=== PATIENT | female | born 1970 | race Caucasian/White ===

== ENCOUNTER 2021-05-27 01:56 | Day surgery (SDC) | payer OTHER, MEDICARE, SELFPAY ==
[2021-05-15 13:44] VITALS: BMI 21.3
--- NOTE | 2021-05-25 12:36 | WPDANESEPPF ---
Anes - Initial Pre Proc Eval Procedure: Operation Date: 05/27/21 09:00 Proposed Procedures p Screening Colonoscopy - Ubaldo Haynes MD Date/Time: 05/25/21 12:36 Surgeon: Ubaldo Haynes MD Pre Op Diagnosis: neoplasm screening Patient Data Age: 50 Gender: F Height: 1.57 m Weight: 53 kg Allergies Allergy/AdvReac Type Severity Reaction Status Date / Time No Known Allergies Allergy Verified 05/27/21 08:10 Home Medications Medication Instructions Recorded Confirmed Type erythromycin with ethanol 1 applic TOPICAL DAILY 05/15/21 05/15/21 History sertraline 50 mg PO DAILY 05/15/21 05/15/21 History Patient hx anesthesia problems: none Family hx anesthesia problems: none Results Review: All pre-operative results and documents have been reviewed as part of the pre-operative evaluation. [facility] Past Medical History Medical History (Updated 05/27/21 @ 08:20 by Ubaldo Haynes MD) Anxiety History of opioid abuse Osteoarthritis Surgical History Surgical History (Updated 05/25/21 @ 12:37 by Hugo Walsh DO) Hx of fusion of cervical spine Social History Social History Smoking status: Never smoker Alcohol intake: never Substance use: current Substance use type: marijuana Other substance usage details: Daily edibles Living arrangements: with family Spiritual care concerns: No Anes - Eval Final PreProcedure Day of Procedure 05/25/21 12:36 Patient weight: normal Heart: regular rate and rhythm Lungs: clear to auscultation and normal air movement Airway: Mallampati scale class II Neurological: alert and oriented Last oral intake: >/= 8 hours ASA classification: III Emergent: no Anesthetic plan: proceed Anesthesia type and monitoring: general GIVS and standard monitoring Results Review: All pre-operative results and documents have been reviewed as part of the pre-operative evaluation. Informed Consent: The patient's anesthetic plan and its attendant risks and benefits were discussed with the patient/family/POA. Questions were solicited and answers provided to the satisfaction of the patient/family/POA.
[2021-05-27 08:11] VITALS: BP 110/78; PULSE 88; RESP 16; TEMP 36.5; O2SAT 99
--- NOTE | 2021-05-27 08:19 | WPDGICN ---
Assessment and Plan Assessment and plan (1) Encounter for screening colonoscopy: Code(s): Z12.11 - Encounter for screening for malignant neoplasm of colon Status: Acute Assessment and Plan: Patient presents today for screening colonoscopy. She appears to be at average risk for colon polyp. Further recommendations may be given after endoscopy. GI Consult Note Consult date/time: 05/27/21 08:19 HPI: Carol Ann Garrison is a 50 year old female Presents for neoplasia screening. Patient's current weight appetite and bowel movements are normal. She denies abdominal pain. She has had no bleeding. Family history is noncontributory. Patient reports she was told she had hemorrhoids many years ago. She denies any obvious blood in her stools. She presents today for colonoscopy. Review of Systems Review of Systems: All systems reviewed & are unremarkable except as noted in HPI and below PMFSH Past Medical History Medical History (Updated 05/27/21 @ 08:20 by Ubaldo Haynes MD) Anxiety History of opioid abuse Osteoarthritis Surgical History Surgical History (Updated 05/25/21 @ 12:37 by Hugo Walsh DO) Hx of fusion of cervical spine Social History Social History Smoking status: Never smoker Alcohol intake: never Substance use: current Substance use type: marijuana Other substance usage details: Daily edibles Living arrangements: with family Spiritual care concerns: No Meds Home Medications and Allergies Home Medications Medication Instructions Recorded Confirmed Type erythromycin with ethanol 1 applic TOPICAL DAILY 05/15/21 05/15/21 History sertraline 50 mg PO DAILY 05/15/21 05/15/21 History Allergies Allergy/AdvReac Type Severity Reaction Status Date / Time No Known Allergies Allergy Verified 05/27/21 08:10 Vital Signs Vital Signs - 24 hr 05/27/21 08:11 Temperature 97.7 F Pulse Rate 88 Respiratory Rate 16 Blood Pressure 110/78 Pulse Oximetry 99 Exam Narrative: Physical exam reveals patient to be alert. Vital signs stable. HEENT exam is unremarkable. Patient is anicteric. Lungs are clear to auscultation and percussion. Heart is without murmur or extra sounds. Abdominal exam bowel sounds are present soft nontender with no hepatosplenomegaly. Digital external rectal exam is normal.
[2021-05-27] MEDS: LACTATED RINGERS 1,000 ML 150 ML IV CONT (08:25)
[2021-05-27 09:05] VITALS: BP 90/57; PULSE 75; O2SAT 100
[2021-05-27 09:12] VITALS: BP 92/56; PULSE 79; RESP 198; O2SAT 100
[2021-05-27 09:25] VITALS: BP 125/84; PULSE 81; RESP 20; O2SAT 99
== END 2021-05-27 09:34 | disposition home or self-care (01) ==
PROVIDERS: PCP Internal Medicine; Visit Provider Internal Medicine Gastroenterology
PROC: 0DJD8ZZ Inspection of Lower Intestinal Tract, Via Natural or Artificial Opening Endoscopic (ICD-10-PCS; CPT 45378; principal; 2021-05-27 09:00)
DX: Z12.11 Encounter for screening for malignant neoplasm of colon (principal); K64.8 Other hemorrhoids; K57.30 Diverticulosis of large intestine without perforation or abscess without bleeding; F41.9 Anxiety disorder, unspecified; F12.90 Cannabis use, unspecified, uncomplicated
CPT/HCPCS: 45378; J2704; J7120

== ENCOUNTER 2022-10-31 13:57 | Outpatient (CLI) | payer OTHER, MEDICARE, SELFPAY ==
--- NOTE | ~2022-10-31 | CT_ITS ---
EXAMINATION: CT abdomen pelvis w con DATE: 10/31/2022 14:55 INDICATION: Abdominal cramping TECHNIQUE: Computed tomography (CT) of the abdomen and pelvis was performed with 100 CC Omnipaque 350 intravenous contrast. Automated exposure control and iterative reconstruction technique were employe d. Exam dose: 236.87 mGy-cm total exam DLP. COMPARISON: None. FINDINGS: There is minimal bilateral dependent lower lobe atelectasis. The lung bases are clear of in filtrate or consolidation. Normal heart size. No pericardial or pleural effusion. Gallbladder, bile ducts and pancreatic duct are unremarkable. Diffuse hepatic steatosis. No hepatic, splenic, pancreatic, and adrenal or renal space-occupying mass lesion is detected. Normal caliber of the abdominal aorta. No intraperitoneal or retroperitoneal or pelvic mass lesion or adenopathy or ascites. Up to approximately 1.6 cm right ovarian or adnexal right ovarian or adnexal cysts are suggested. The uterus and adnexal areas are otherwise unremarkable. Normal appendix. Diverticulosis of the colon; no CT evidence of diverticulitis. No bowel obstruction, bowel wall thick ening, pneumatosis or intraperitoneal free air. Very small fat-containing umbilical hernia. No suspicious osteolytic or osteoblastic lesions. IMPRESSION: Normal appendix Diverticulosis of the colon; no CT evidence of diverticulitis No bowel obstruction or free air Hepatic steatosis Right adnexal or ovarian probable cysts Reviewed, dictated and finalized at [facility]. Reviewed, dictated and finalized at [facility].
== END 2022-10-31 13:58 | disposition home or self-care (01) ==
LOC: ANHIMG 14:02
PROVIDERS: PCP Internal Medicine; Visit Provider Internal Medicine
DX: R10.9 Unspecified abdominal pain (principal); K57.30 Diverticulosis of large intestine without perforation or abscess without bleeding; K76.0 Fatty (change of) liver, not elsewhere classified
CPT/HCPCS: 74177; Q9967

== ENCOUNTER 2023-09-28 14:54 | Outpatient (CLI) | payer OTHER, MEDICARE, SELFPAY ==
--- NOTE | ~2023-09-28 | XR_ITS ---
XR clavicle BI Ordering provider: Esther Meehan MD History: . Clavicle enlargement . Comparison: None. FINDINGS: BONES: No acute fracture or dislocation. JOINT SPACES: Normal. No acromioclavicular separation. SOFT TISSUES: Normal. IMPRESSION: No acute osseous abnormality of the right and left clavicle. Reviewed, dictated and finalized at [facility].
== END 2023-09-28 14:55 ==
PROVIDERS: PCP Internal Medicine; Visit Provider Internal Medicine
DX: M89.319 Hypertrophy of bone, unspecified shoulder (principal)
CPT/HCPCS: 73000

== ENCOUNTER 2023-12-21 12:55 | Outpatient (CLI) | payer OTHER, MEDICARE, SELFPAY ==
--- NOTE | ~2023-12-21 | MR_ITS ---
EXAMINATION: MR clavicle RT wo/w con DATE: 12/21/2023 13:56 INDICATION: Right clavicle enlargement. Right shoulder pain. TECHNIQUE: Magnetic resonance imaging (MRI) of the right clavicle was performed without and with 9 mL MultiHance intravenous contrast. COMPARISON: Right clavicle radiographs 09/28/2023, chest CT 02/22/2018 FINDINGS: There is a skin marker overlying the right sternoclavicular joint. Alignment is normal. No fracture. There is mild osteoarthritis of acromioclavicular joint and sternoclavicular joint. There i s enhancing synovitis at right sternoclavicular joint. IMPRESSION: 1. Synovitis and mild osteoarthritis at right sternoclavicular joint. Reviewed, dictated and finalized at [facility].
== END 2023-12-21 12:56 | disposition home or self-care (01) ==
LOC: MICIMG 12:56
PROVIDERS: PCP Internal Medicine; Visit Provider Internal Medicine
DX: M19.011 Primary osteoarthritis, right shoulder (principal)
CPT/HCPCS: 73220; A9577